=== PATIENT | female | born 1965 | race Two or more races ===

== ENCOUNTER 2023-02-21 17:13 | Emergency (ER) | payer OTHER ==
[2023-02-21 18:14] VITALS: RESP 18; BMI 23.4
[2023-02-21] MEDS ORDERED: IBUPROFEN 400 MG TABLET (FP) PO ONE ×2 (18:16→18:32)
[2023-02-21] MEDS ORDERED: ACETAMINOPHEN 325 MG TABLET (FP) PO ONE (18:17)
[2023-02-21] MEDS ORDERED: ONDANSETRON *ODT* 4 MG TABLET SL ONE (18:31)
[2023-02-21] MEDS ORDERED: ONDANSETRON *ODT* 4 MG TABLET ONE (18:33)
[2023-02-21] MEDS ORDERED: ACETAMINOPHEN 325 MG TABLET (FP) ONE (18:33)
[2023-02-21] MEDS ORDERED: CEFTRIAXONE 1,000 MG in DEXTROSE 5%-WATER - 50 ML IVPB ONE (19:09)
[2023-02-21] MEDS ORDERED: cefTRIAXone SODIUM 1 GM VIAL ONE (19:29)
[2023-02-21 19:56] LABS: HEMATOCRIT 38.7 % (32.4-45.2); HEMOGLOBIN 13.3 G/dL (10.7-15.3); MCH 34.6 pg (25.7-33.7); MCHC 34.3 g/dl (32.0-36.0); MEAN PLT VOLUME 8.5 fl (7.5-11.1); PLATELET COUNT 260.8 10^3/uL (134-434); RBC 3.83 10^6/uL (3.60-5.2); RDW 12.4 % (11.6-15.6); WHITE BLOOD COUNT 10.1 10^3/uL (4.0-10.8)
[2023-02-21 20:05] LABS: ALBUMIN 3.6 g/dl (3.4-5.0); CALCIUM 8.6 mg/dl (8.5-10); CREATININE 0.8 mg/dl (0.55-1.3); POTASSIUM 3.8 mmol/L (3.5-5.1); TOT PROT 6.7 g/dl (6.4-8.2)
[2023-02-21 20:43] LABS: PLATELET ESTIMATE ADEQUATE
[2023-02-21 21:13] VITALS: BP 96/63; PULSE 82; TEMP 98.6
== END 2023-02-21 22:02 | disposition home or self-care (01) ==
LOC: FER 17:13
DX: R50.9 Fever, unspecified (principal); R51.9 Headache, unspecified; R05.9 Cough, unspecified; R10.31 Right lower quadrant pain; N12 Tubulo-interstitial nephritis, not specified as acute or chronic; M79.10 Myalgia, unspecified site; Z20.822 Contact with and (suspected) exposure to COVID-19
CPT/HCPCS: 0241U-QW; 36415; 71046-TC-FY; 74176-TC; 80053; 81003; 81015; 85027; 87040; 87086; 87186; 99285-25; Q0162

== ENCOUNTER 2023-03-01 18:16 | Emergency (ER) | payer OTHER ==
[2023-03-01] MEDS ORDERED: CEFTRIAXONE 1 GM in DEXTROSE 5%-WATER - 50 ML IVPB ONE (18:26)
[2023-03-01 18:32] VITALS: BP 170/78; PULSE 74; RESP 18; TEMP 97.6; BMI 22.2
[2023-03-01] MEDS ORDERED: ACETAMINOPHEN 1000 MG/100 ML BAG IVPB ONE (18:54)
[2023-03-01] MEDS ORDERED: KETOROLAC TROMETHAMINE 30 MG/1 ML VIAL IVPUSH ONE (18:54)
[2023-03-01] MEDS ORDERED: LIDOCAINE 5% TOPICAL PATCH TP ONE (18:54)
[2023-03-01] MEDS ORDERED: LIDOCAINE 5% TOPICAL PATCH ONE (18:57)
[2023-03-01] MEDS ORDERED: ACETAMINOPHEN INJECTION 100 ML IVPB ONE (18:57)
[2023-03-01] MEDS ORDERED: KETOROLAC TROMETHAMINE 30 MG/1 ML VIAL ONE (18:57)
[2023-03-01 19:08] LABS: HEMATOCRIT 40.2 % (32.4-45.2); HEMOGLOBIN 13.2 G/dL (10.7-15.3); MCH 33.4 pg (25.7-33.7); MCHC 32.9 g/dl (32.0-36.0); MEAN CELL VOLUME 101.4 fl (80-96); PLATELET COUNT 394.6 10^3/uL (134-434); RBC 3.96 10^6/uL (3.60-5.2); RDW 12.3 % (11.6-15.6); WHITE BLOOD COUNT 5.8 10^3/uL (4.0-10.8)
[2023-03-01 19:17] LABS: ALBUMIN 3.4 g/dl (3.4-5.0); BILIRUBIN,TOTAL 0.2 mg/dl (0.2-1); CALCIUM 9.3 mg/dl (8.5-10); POTASSIUM 4.6 mmol/L (3.5-5.1); TOT PROT 6.5 g/dl (6.4-8.2)
[2023-03-01 19:53] LABS: PLATELET ESTIMATE ADEQUATE
[2023-03-01] MEDS ORDERED: predniSONE 20 MG TABLET (UD) PO ONE (21:12)
[2023-03-01] MEDS ORDERED: predniSONE 20 MG TABLET (UD) ONE (21:14)
[2023-03-01] MEDS ORDERED: LIDOCAINE PATCH REMOVAL MC SCH (22:00)
== END 2023-03-01 21:16 | disposition home or self-care (01) ==
LOC: FER 18:16
PROC: 3E033NZ Introduction of Analgesics, Hypnotics, Sedatives into Peripheral Vein, Percutaneous Approach (ICD-10-PCS; principal; 2023-03-01)
PROC: 3E0333Z Introduction of Anti-inflammatory into Peripheral Vein, Percutaneous Approach (ICD-10-PCS; 2023-03-01)
DX: M54.50 Low back pain, unspecified (principal); R10.9 Unspecified abdominal pain; Z20.822 Contact with and (suspected) exposure to COVID-19
CPT/HCPCS: 0241U-QW; 36415; 74177-TC; 80053; 81003; 82550; 83690; 85027; 87040; 87086; 99285-25; Q9967

== ENCOUNTER 2023-09-27 23:16 | Emergency (ER) | payer OTHER ==
[2023-09-27 23:34] VITALS: BP 114/73; PULSE 79; RESP 16; TEMP 97.8; BMI 22.1
[2023-09-28] MEDS ORDERED: ACETAMINOPHEN 500 MG TABLET (FP) PO ONE (01:32)
[2023-09-28] MEDS ORDERED: ACETAMINOPHEN 500 MG TABLET (FP) ONE (01:36)
[2023-09-28 01:42] LABS: PH,URINE 5.5 (5.0-8.0); URINE APPEARANCE CLEAR; URINE BILIRUBIN NEGATIVE (NEGATIVE); URINE COLOR YELLOW; URINE GLUCOSE (UA) NEGATIVE (NEGATIVE); URINE KETONE NEGATIVE (NEGATIVE); URINE LEUK ESTERASE NEGATIVE (NEGATIVE); URINE NITRITE NEGATIVE (NEGATIVE); URINE PROTEIN NEGATIVE (NEGATIVE); URINE UROBILINOGEN 0.2 mg/dL (0.2-1.0)
== END 2023-09-28 02:19 | disposition home or self-care (01) ==
LOC: FER 23:16
DX: M54.50 Low back pain, unspecified (principal); S39.012A Strain of muscle, fascia and tendon of lower back, initial encounter; X58.XXXA Exposure to other specified factors, initial encounter
CPT/HCPCS: 74176-TC; 81003; 81025; 87086; 99284-25

== ENCOUNTER 2024-08-18 00:01 | Emergency (ER) | payer OTHER ==
[2024-08-18 00:11] VITALS: BP 122/79; PULSE 73; RESP 18; TEMP 97.5; BMI 23.6
[2024-08-18] MEDS ORDERED: AMOX TR/POT CLAV 875MG/125MG TABLETS (FP) ONE (00:43)
[2024-08-18] MEDS: metroNIDAZOLE 250 MG TABLET PO ONE (00:48)
[2024-08-18] MEDS: AMOX TR/POT CLAV 875MG/125MG TABLETS (FP) PO ONE (00:48)
== END 2024-08-18 01:11 | disposition home or self-care (01) ==
LOC: FER 00:01
DX: K04.7 Periapical abscess without sinus (principal); K02.9 Dental caries, unspecified; K08.89 Other specified disorders of teeth and supporting structures
CPT/HCPCS: 70100-TC-FY; 99283-25

== ENCOUNTER 2025-05-15 19:39 | Emergency (ER) | payer OTHER ==
[2025-05-15 19:58] VITALS: BP 121/76; PULSE 73; RESP 17; TEMP 97.7; BMI 23.6
[2025-05-15 20:56] LABS: ABSOLUTE IMMATURE GRANULOCYTES 0.00 x10^3/uL (0.0-0.031); BASOPHILS # 0.02 x10^3/uL (0.01-0.08); EOSINOPHIL % 1.7 % (0.7-5.8); EOSINOPHILS # 0.07 x10^3/uL (0.04-0.36); MCHC 32.9 g/dl (32.2-35.5); MEAN CELL VOLUME 100.0 fl (79.4-94.8); MEAN PLT VOLUME 9.8 fl (9.4-12.3); MONOCYTE # 0.41 x10^3/uL (0.24-0.86); MONOCYTE % 10.0 % (4.7-12.5); RDW 11.8 % (12.3-16.6)
[2025-05-15] MEDS: SODIUM CHLORIDE 1,000 ML IV ONE (20:56)
[2025-05-15] MEDS: morphine CARPU-JECT 4 MG/1 ML DISP.SYRIN IVPUSH ONE (20:57)
[2025-05-15 21:11] LABS: ALK PHOS 62.0 U/L (45-117); CO2 30.0 mmol/L (21-32); CREATININE 0.8 mg/dl (0.6-1.3); GLUCOSE,RANDOM 95.0 mg/dl (74-106); SGOT/AST 73.0 U/L (15-37); SGPT/ALT 121.0 U/L (7-52); TOT PROT 6.4 g/dl (6.4-8.2)
[2025-05-16 00:43] LABS: HCV DIAGNOSTIC IN-HOUSE W/RFLX NON-REACTIVE (NONREACTIVE)
[2025-05-16 00:48] LABS: HIV INTERPRETATION NEGATIVE (NEGATIVE)
== END 2025-05-16 01:13 | disposition home or self-care (01) ==
LOC: FER 19:39
PROC: 3E033NZ Introduction of Analgesics, Hypnotics, Sedatives into Peripheral Vein, Percutaneous Approach (ICD-10-PCS; principal; 2025-05-15)
PROC: 3E0337Z Introduction of Electrolytic and Water Balance Substance into Peripheral Vein, Percutaneous Approach (ICD-10-PCS; 2025-05-15)
DX: R10.32 Left lower quadrant pain (principal); R11.0 Nausea
CPT/HCPCS: 36415; 74177-TC; 80053; 81003; 81015; 83605; 83735; 85025; 86803; 87389; 99285-25; Q9967